=== PATIENT | male | born 1995 | race Caucasian/White ===

== ENCOUNTER 2020-02-10 17:16 | Emergency (ER) | payer BC ==
[2020-02-10 18:10] VITALS: BP 161/98; PULSE 58
[2020-02-10] MEDS ORDERED: Amoxicillin 875 MG Tab PO ONE (18:10)
[2020-02-10] MEDS ORDERED: Acetaminophen/oxyCODONE 325-5 MG Tab PO ONE (18:10)
[2020-02-10] MEDS ORDERED: Take Home: Acetaminophen/oxyCODONE 325-5 MG, 5 Tab Pack PO ONE (18:12)
--- NOTE | 2020-02-10 18:12 | EDM.PDOC ---
ED HPI GENERAL MEDICAL PROBLEM - General Stated Complaint: TOOTH ACHE Time Seen by Provider: 02/10/20 18:05 Source of Information: Reports: Patient History Limitations: Reports: No Limitations - History of Present Illness INITIAL COMMENTS - FREE TEXT/NARRATIVE: Patient comes into the emergency department with complaint of a left upper tooth discomfort. Patient states that he has had a fractured tooth for approximately 1 year. He did see his dentist right after the initial injury and they did suggest he have it extracted however he never did follow-up for it was not bothering him or causing any complication. Over the course of the last 24 hours the patient states that it has increased in pain and discomfort and also noticed swelling along the gumline on the left upper side. Patient states that he is unable to eat any food or drink any liquids without severe pain. He also states there is a sharp shooting pain and discomfort on the left upper side of his mouth. Been taking Tylenol to help with the pain and discomfort however he states it is not helping. He has tried calling a few dentist however he is getting their voicemails and state that they will not be in the office till tomorrow. Uncertain because he has had dental infections in the past needing antibiotics. The significant amount of pain and discomfort he requested to have an evaluation completed today and hopeful that he will be able to get into the dentist right away tomorrow to have the tooth extracted or evaluated Quality: Reports: Stabbing, Throbbing Severity: Severe Improves with: Reports: Rest Worsens with: Reports: Cold Therapy, Eating, Movement - Related Data Allergies Allergy/AdvReac Type Severity Reaction Status Date / Time No Known Allergies Allergy Verified 02/10/20 18:12 Home Meds: Home Meds Amoxicillin 875 mg PO BID #14 tablet 02/10/20 [Rx] Levothyroxine 200 mcg PO DAILY 02/10/20 [History] Past Medical History - Past Health History Medical/Surgical History: Denies Medical/Surgical History ED ROS ENT - Review of Systems Review Of Systems: Comprehensive ROS is negative, except as noted in HPI. Constitutional: Reports: No Symptoms Respiratory: Reports: No Symptoms Endocrine: Reports: No Symptoms GI/Abdominal: Reports: No Symptoms : Reports: No Symptoms Musculoskeletal: Reports: No Symptoms Skin: Reports: No Symptoms Neurological: Reports: No Symptoms Psychiatric: Reports: No Symptoms ED EXAM, ENT - Physical Exam Exam: See Below Exam Limited By: No Limitations General Appearance: Alert, WD/WN, No Apparent Distress Eye Exam: Bilateral Eye: PERRL Ears: Normal External Exam, Normal Canal, Hearing Grossly Normal, Normal TMs Nose: Normal Inspection, Normal Mucousa Mouth/Throat: Dental Abcess (left upper molar), Dental Pain (left upper molar fracture tooth with root appearing ), Dental Trauma, Gum Swelling (left upper gums ). No: Lip Ulcers, Muffled Voice, Oral Ulcers, Throat Pain, Throat Swelling, Tongue Swelling, Tonsillar Erythema, Tonsillar Exudates, Tonsillar Swelling, Trismus Head: Atraumatic, Normocephalic Neck: Normal Inspection, Supple, Non-Tender, Full Range of Motion Respiratory/Chest: No Respiratory Distress, No Accessory Muscle Use, Chest Non- Tender Cardiovascular: Normal Peripheral Pulses, Regular Rate, Rhythm, No Edema Back: Normal Inspection, Full Range of Motion Extremities: Normal Inspection, Normal Range of Motion, Non-Tender, No Pedal Edema, Normal Capillary Refill Neurological: Alert, Oriented Psychiatric: Normal Affect, Normal Mood Departure - Departure Time of Disposition: 18:20 Disposition: Home, Self-Care 01 Condition: Good Clinical Impression: Dental caries extending into dentin, Dental abscess Broken tooth Qualifiers: Encounter type: sequela Fracture type: open Qualified Code(s): S02.5XXS - Fracture of tooth (traumatic), sequela - Discharge Information *PRESCRIPTION DRUG MONITORING PROGRAM REVIEWED*: Not Applicable Instructions: Dental Abscess, [id number], Tooth Injuries, Amoxicillin capsules or tablets, Probiotics, Oxycodone tablets or capsules Additional Instructions: 1. rest 2. increase your water intake 3. Take all antibiotics as prescribed even if feeling better 4. Take a probiotic while on antibiotics to help promote healthy GI motility 5. Activity and diet as tolerated 6. Can use Ibuprophen or tyelonal for any fever or discomfort 7. Follow up with your PCP or return if symptoms progress or worsen. 3 follow- up with the dentist tomorrow to have your tooth extracted and or further evaluated 8. Education provided to you regarding your illness, probiotics, antibioitic prescribed 9. Call with any questions or concerns The medication you have been prescribed today has a warning it may inhibit your response or action time. It is advised you do not drive or operate any device while using this medications. It is also advised this medication can not be shared or given to other individuals for it is against the law and one may be punished in the court of law. - Assessment/Plan Assessment:: 1. Dental abscess 2. Dental pain 3. Molar tooth Fracture Plan: 1. Amoxicillin 875 mg given in the ER for pain 2. Percocet 325 mg - 5 mg given in the ER for severe pain 3. Prescription sent with the patient of amoxicillin 875 mg twice daily x7 days or until being evaluated by the dentist 4. Take 1 packet of Percocet was given to the patient. Patient was given strict instructions regarding the use of these medications and risk factors 5. Patient was instructed to call the dentist in the am and be evaluated for possible tooth extraction 6. Patient and nursing staff was updated regarding the plan of care 7. Education provided the patient regarding activity, diet, rest, over-the- counter medication modalities, and follow-up care was provided 8. Patient is agreeable to the above plan of care 9. All questions and concerns were addressed with the patient and family prior to discharge
== END 2020-02-10 18:32 | disposition home or self-care (01) ==
LOC: VM.ED 17:16
DX: K03.81 Cracked tooth (principal); K02.9 Dental caries, unspecified; K04.7 Periapical abscess without sinus; Z79.899 Other long term (current) drug therapy
CPT/HCPCS: 99282; A9270